=== PATIENT | male | born 1970 | race Caucasian/White ===

== ENCOUNTER 2018-12-22 15:43 | Emergency (ER) | payer MEDICAID ==
[~2018-12-22] VITALS: Ht 170.2 cm; Wt 81.6 kg
[2018-12-22 16:08] VITALS: BP 139/83
--- NOTE | 2018-12-22 16:44 | NUR ---
PATIENT TAKEN TO CT
== END 2018-12-22 18:04 | disposition home or self-care (01) ==
LOC: ER 15:47
DX: S06.0X0A Concussion without loss of consciousness, initial encounter (principal); S39.012A Strain of muscle, fascia and tendon of lower back, initial encounter; V43.52XA Car driver injured in collision with other type car in traffic accident, initial encounter; Y93.89 Activity, other specified; Y92.413 State road as the place of occurrence of the external cause; Y99.8 Other external cause status
CPT/HCPCS: 70450-TC; 72131-TC

== ENCOUNTER 2019-11-24 20:47 | Emergency (ER) | payer MEDICAID ==
[~2019-11-24] VITALS: Ht 170.2 cm; Wt 88.5 kg
--- NOTE | 2019-11-24 21:10 | NUR ---
BIB SON FOR C/O ON AND OFF LEFT SIDED, NON RADITING CP FOR THE PAST TWO DAYS. - SOB, - N/V. PT WAS PLACED ON A MONITOR. VSS.
--- NOTE | 2019-11-24 21:13 | NUR ---
AT THE BED SIDE
[2019-11-24] MEDS ORDERED: ASPIRIN 81 MG TAB.CHEW ONE (21:25)
[2019-11-24] MEDS ORDERED: ASPIRIN 81 MG TAB.CHEW PO ONE (21:30)
[2019-11-24 21:34] LABS: BASOPHILS % (AUTO) 0.2 % (0.0-2.0); EOSINOPHILS % (AUTO) 0.7 % (0.0-6.0); HEMATOCRIT 39 % (39-51); HEMOGLOBIN 13.3 g/dL (13.5-17.5); LYMPHOCYTES # (AUTO) 2.1 /CMM (0.8-4.8); LYMPHOCYTES % (AUTO) 24.7 % (20.0-44.0); MEAN CORPUSCULAR HGB CONC 34 g/dl (31.0-36.0); MEAN CORPUSCULAR VOLUME 91 fL (80-96); MONOCYTES # (AUTO) 0.5 /CMM (0.1-1.30); MONOCYTES % (AUTO) 6.4 % (2.0-12.0); NEUTROPHILS # (AUTO) 5.8 /CMM (1.8-8.9); PLATELET COUNT (AUTO) 225 /CMM (150-450); RED BLOOD CELL COUNT(AUTO) 4.31 MIL/uL (4.5-6.0); WHITE BLOOD COUNT (AUTO) 8.5 K/uL (4.3-11.0)
[2019-11-24 21:43] LABS: CALCIUM, SERUM 9.3 mg/dL (8.5-10.1); CARBON DIOXIDE 28 mmol/L (21-32); CHLORIDE 104 mmol/L (98-107); CREATININE 0.8 mg/dL (0.6-1.3); GLUCOSE 148 mg/dL (74-106); POTASSIUM 3.9 mmol/L (3.5-5.1); SODIUM SERUM 140 mmol/L (136-145); UREA NITROGEN, BLOOD 13 mg/dL (7-18)
--- NOTE | 2019-11-24 22:11 | NUR ---
AT THE BED SIDE
--- NOTE | 2019-11-25 00:13 | NUR ---
SITTING IN BED AWAKE AND ALERT. W/ NO C.O PAIN OR DISCOMFORT. VSS. WILL CONT TO MONITOR,
--- NOTE | 2019-11-25 00:26 | NUR ---
IV removed. Catheter intact and site benign. Pressure and 4x4 applied to site. No bleeding noted.
--- NOTE | 2019-11-25 00:30 | NUR ---
Pt is medically stable for d/c. reported feeling good w. no c/o pain or discomfort. IV removed. Catheter intact and site benign. Pressure and 4x4 applied to site. No bleeding noted.Patient discharged to home in stable condition. Written and verbal after care instructions given. Patient verbalizes understanding of instruction.
[2019-11-25 00:35] VITALS: BP 134/78
== END 2019-11-25 00:36 | disposition home or self-care (01) ==
LOC: ER 20:47
DX: R07.89 Other chest pain (principal); E11.9 Type 2 diabetes mellitus without complications
CPT/HCPCS: 36415; 71045-TC; 80048-TC; 84484-TC; 85025-TC